=== PATIENT | male | born 1980 | race Caucasian/White ===

== ENCOUNTER 2020-04-19 20:45 | Emergency (ER) | payer SELFPAY ==
[~2020-04-19] VITALS: Ht 177.8 cm; Wt 63.5 kg
[~2020-04-19 20:45] MED LIST: ACHD5005 PO; ALPR.5T; AMOX500C2 PO; CITA40TA19 PO; CLIN-62 PO; CLON0.5T3 PO; CLON1TAB36 PO; CYCL10TA9 PO; DVL500TEC PO; HYDR1TAB PO; NAPR-243 PO; PENI500T PO; QUET50TA; TRM50T PO; TRZ100T PO; VICODIN; WELLBUTRIN; XANAX
--- NOTE | 2020-04-19 20:57 | ED Psychosocial ---
General Chief Complaint: Substance Abuse Stated Complaint: ALCOHOL INTOX Source: EMS Exam Limitations: no limitations (JERROD JUAREZ APRN) History of Present Illness Date Seen by Provider: April 19, 2020 Time Seen by Provider: 20:56 Initial Comments To ER per EMS with reports of alcohol intoxication. He was apparently driving, was pulled over by police, got out of the car and was unable to stand up so they called EMS. Timing/Duration: constant Severity: moderate (JERROD JUAREZ APRN) Allergies and Home Medications Allergies Coded Allergies: No Known Drug Allergies (Verified , 04/27/09) Patient Home Medication List Home Medication List Reviewed: Yes (JERROD JUAREZ APRN) Review of Systems Constitutional: see HPI, other (unable to obtain due to altered mental status) EENTM: see HPI (JERROD JUAREZ APRN) Past Gihfhmm-Tvhjvg-Treslx Hx Immunizations Up To Date Date of Influenza Vaccine: Dec 30, 2011 (JERROD JUARZE APRN) Past Medical History Anxiety, Depression (JERROD JUAREZ APRN) Physical Exam Vital Signs - First Documented 04/19/20 20:53 Temp 36.2 Pulse 89 Resp 17 B/P (MAP) 134/101 (112) O2 Delivery Room Air (CLEVELAND NICOLAS MD) Capillary Refill : (JERROD JUAREZ APRN) Height, Weight, BMI Height: '" Weight: lbs. oz. kg; BMI Method:Stated General Appearance: WD/WN, no apparent distress, other (lethargic, maintaining his own airway alert) Neck: non-tender, full range of motion Respiratory: no respiratory distress, no accessory muscle use Cardiovascular: regular rate, rhythm, no murmur Gastrointestinal: normal bowel sounds, non tender, soft Neurologic/Psychiatric: alert Appearance/Memory: disheveled, impaired insight Thoughts/Hallucinations: normal thought pattern, no apparent hallucination Skin: normal color, warm/dry (JERROD JUAREZ APRN) Progress/Results/Core Measures Results/Orders Lab Results Laboratory Tests Test 04/19/20 20:55 04/19/20 22:30 Range/Units White Blood Count 12.1 H 4.3-11.0 10^3/uL Red Blood Count 4.60 4.35-5.85 10^6/uL Hemoglobin 15.1 13.3-17.7 G/DL Hematocrit 42 40-54 % Mean Corpuscular Volume 91 80-99 FL Mean Corpuscular Hemoglobin 33 25-34 PG Mean Corpuscular Hemoglobin Concent 36 32-36 G/DL Red Cell Distribution Width 13.0 10.0-14.5 % Platelet Count 207 130-400 10^3/uL Mean Platelet Volume 9.3 7.4-10.4 FL Neutrophils (%) (Auto) 79 H 42-75 % Lymphocytes (%) (Auto) 13 12-44 % Monocytes (%) (Auto) 8 0-12 % Eosinophils (%) (Auto) 0 0-10 % Basophils (%) (Auto) 0 0-10 % Neutrophils # (Auto) 9.5 H 1.8-7.8 X 10^3 Lymphocytes # (Auto) 1.5 1.0-4.0 X 10^3 Monocytes # (Auto) 0.9 0.0-1.0 X 10^3 Eosinophils # (Auto) 0.0 0.0-0.3 10^3/uL Basophils # (Auto) 0.1 0.0-0.1 10^3/uL Prothrombin Time 13.3 12.2-14.7 SEC INR Comment 1.0 0.8-1.4 Sodium Level 146 H 135-145 MMOL/L Potassium Level 2.9 L 3.6-5.0 MMOL/L Chloride Level 111 H 98-107 MMOL/L Carbon Dioxide Level 21 21-32 MMOL/L Anion Gap 14 5-14 MMOL/L Blood Urea Nitrogen 11 7-18 MG/DL Creatinine 0.80 0.60-1.30 MG/DL Estimat Glomerular Filtration Rate > 60 BUN/Creatinine Ratio 14 Glucose Level 127 H 70-105 MG/DL Calcium Level 7.7 L 8.5-10.1 MG/DL Corrected Calcium 7.9 L 8.5-10.1 MG/DL Total Bilirubin 0.2 0.1-1.0 MG/DL Aspartate Amino Transf (AST/SGOT) 36 H 5-34 U/L Alanine Aminotransferase (ALT/SGPT) 34 0-55 U/L Alkaline Phosphatase 43 40-136 U/L Total Protein 6.2 L 6.4-8.2 GM/DL Albumin 3.8 3.2-4.5 GM/DL Serum Alcohol 480 *H <10 MG/DL Urine Color YELLOW Urine Clarity CLEAR Urine pH 6.0 5-9 Urine Specific [place] <=1.005 1.016-1.022 Urine Protein TRACE H NEGATIVE Urine Glucose (UA) 1+ H NEGATIVE Urine Ketones NEGATIVE NEGATIVE Urine Nitrite NEGATIVE NEGATIVE Urine Bilirubin NEGATIVE NEGATIVE Urine Urobilinogen 0.2 < = 1.0 MG/DL Urine Leukocyte Esterase NEGATIVE NEGATIVE Urine RBC (Auto) NEGATIVE NEGATIVE Urine RBC NONE /HPF Urine WBC RARE /HPF Urine Squamous Epithelial Cells RARE /HPF Urine Crystals NONE /LPF Urine Bacteria TRACE /HPF Urine Casts NONE /LPF Urine Mucus SMALL H /LPF Urine Culture Indicated NO Urine Opiates Screen NEGATIVE NEGATIVE Urine Oxycodone Screen NEGATIVE NEGATIVE Urine Methadone Screen NEGATIVE NEGATIVE Urine Propoxyphene Screen NEGATIVE NEGATIVE Urine Barbiturates Screen NEGATIVE NEGATIVE Ur Tricyclic Antidepressants Screen NEGATIVE NEGATIVE Urine Phencyclidine Screen NEGATIVE NEGATIVE Urine Amphetamines Screen NEGATIVE NEGATIVE Urine Methamphetamines Screen NEGATIVE NEGATIVE Urine Benzodiazepines Screen POSITIVE H NEGATIVE Urine Cocaine Screen NEGATIVE NEGATIVE Urine Cannabinoids Screen POSITIVE H NEGATIVE (CLEVELAND NICOLAS MD) My Orders Orders - CLEVELAND NICOLAS MD Potassium Chloride (Tablet) (K Dur Table (04/19/20 23:00) (CLEVELAND NICOLAS MD) Medications Given in ED Current Medications Medications Dose Ordered Sig/Lesa Route Start Time Stop Time Status Last Admin Dose Admin Potassium Chloride 50 ml @ 50 mls/hr ONCE ONCE IV 04/19/20 21:30 04/19/20 22:29 DC 04/19/20 21:33 50 MLS/HR (CLEVELAND NICOLAS MD) Vital Signs/I&O 04/19/20 20:53 Temp 36.2 Pulse 89 Resp 17 B/P (MAP) 134/101 (112) O2 Delivery Room Air (CLEVELAND NICOLAS MD) Progress Progress Note : Progress Note 2330: I assumed care of the patient from Jerrod Juarez APRN at 2240 pending final labs. Patient is intoxicated. He drinks daily. He has been up walking and talking with us. He did pull his IV which was restarted and we finished the initial potassium replacement. He did get a liter of fluid. He is inebriated but resting peacefully without difficulty. We did talk with his mother who is willing to take him home. He is actually on his way to get him. Patient did take 20 mEq of potassium chloride by mouth as well and has tolerated that without vomiting. He's had no nausea and vomiting here. At this time we will let him go home with his mother. Discharge to his mother's care. Patient verbalize understanding instructions and agreement with plan. (CLEVELAND NICOLAS MD) Departure Impression Primary Impression: Acute alcoholic intoxication Qualified Codes: F10.920 - Alcohol use, unspecified with intoxication, uncomplicated Disposition: 01 HOME, SELF-CARE Condition: Stable Departure-Patient Inst. Decision time for Depature: 23:35 (CLEVELAND NICOLAS MD) Referrals: [facility] (PCP/Family) Primary Care Physician Patient Instructions: ALCOHOL AND SUBSTANCE ABUSE Add. Discharge Instructions: All discharge instructions reviewed with patient and/or family. Voiced understanding. You should follow up with [facility] in their addiction treatment services clinic to discuss alcoholism and the process to quit drinking before your alcoholism kills you. Return for worse pain, fever, vomiting, weakness, breathing problems or other concerns as needed. Resume normal diet and drink plenty of fluids tomorrow. You should decrease her alcohol intake and ultimately quit drinking alcohol. JERROD JUAREZ APRN April 19, 2020 20:57 CLEVELAND NICOLAS MD April 19, 2020 23:37
[2020-04-19] MEDS ORDERED: LACTATED RINGERS 1,000 ML IV SCH (21:00)
[2020-04-19 21:01] LABS: BASOPHILS # (AUTO) 0.1 10^3/uL (0.0-0.1); BASOPHILS % (AUTO) 0 % (0-10); EOSINOPHILS % (AUTO) 0 % (0-10); HEMATOCRIT 42 % (40-54); HEMOGLOBIN 15.1 G/DL (13.3-17.7); LYMPHOCYTES # (AUTO) 1.5 X 10^3 (1.0-4.0); LYMPHOCYTES % (AUTO) 13 % (12-44); MEAN CORPUSCULAR HEMOGLOBIN 33 PG (25-34); MEAN CORPUSCULAR HGB CONC 36 G/DL (32-36); MEAN CORPUSCULAR VOLUME 91 FL (80-99); MEAN PLATELET VOLUME 9.3 FL (7.4-10.4); MONOCYTES # (AUTO) 0.9 X 10^3 (0.0-1.0); MONOCYTES % (AUTO) 8 % (0-12); NEUTROPHILS # (AUTO) 9.5 X 10^3 (1.8-7.8); NEUTROPHILS % (AUTO) 79 % (42-75); PLATELET COUNT 207 10^3/uL (130-400); WHITE BLOOD COUNT 12.1 10^3/uL (4.3-11.0)
--- OUTSIDE RECORDS SUMMARY | 2020-04-19 21:06 | XMS REPORT | Continuity of Care Document ---
Author Author [facility] Organization [facility] Address Unknown Phone Unavailable Care Team Providers Care Satellite Tv Technician Name Role Phone [facility] Insurance Providers Payer Name Policy Number Subscriber Name Relationship Self Pay Silva Chavez Self / Same As Patient Advance Directives Directive Response Recor ded Date Advance Directives N 2:01pm Health Care Power of D[place] Or [place] Hand N 05/20/13 2:01pm Organ Donor N 05/20/13 2 :01pm Problems No Known Problems or Medical conditions. Family History History Response Recorde d Date/Time Hx Family Cancer Y GRANDPARENTS 04/27/09 12:39pm Hx Family Stroke Y GRANDFATHER 04/27/09 12:39pm Social History History Response Recorde d Date/Time Alcohol Use Denies Use 0 05/20/13 2:01pm Recreational Drug Use Y OCC MARIJUANA, MET H 05/20/13 2:01pm Allergies, Adverse Reactions, Alerts Allergen Type Severity Reaction Last Updated No Known Drug Allergies 04/27/09 Medications Medication Dose Units Route Sig Qty Days [Xanax] [Wellbutrin] [Vicodin] Tramadol HCl (Ultram) 50 Mg PO Q4-6HOURS PRN 20 Penicillin V Potassium (Pen-Vee K) 1 Tab PO QID 40 Naproxen (Naprosyn) 1 Ea ch PO TID PRN 20 Naproxen (Naprosyn) 1 Ea ch PO TID PRN 20 Cyclobenzaprine HCl (Cyclobenzaprine Hcl) 1 Each PO Q8HR PRN 15 Trazodone HCl (Desyrel 100 Mg) 100 Mg PO HS Citalopram Hydrobromide (Celexa) 1 Each PO DAILY Divalproex Sodium (Depakote Tab) 1 Each PO TID Immunizations Name Given Type Date of Influenza Vaccine 12/30/11 H Response Recorded Date/Time Status not known Unknown Results No Known Relevant Diagnostic Tests, Laboratory Data and/or Discharge Summary. Encounters Encounter Location Date/ Time Departed Emergency Room [facility] 05/20/13 1:52pm Discharged Inpatient [facility] 04/27/09 12:11pm
--- OUTSIDE RECORDS SUMMARY | 2020-04-19 21:06 | XMS REPORT | Continuity of Care Document ---
Author Organization Unknown Address Unknown Phone Unavailable Allergies Active Description Code Type Severity Reaction Onset Reported/Identified Relationship to Patient Clinical Status Yes No Known Drug Allergies [id number] Drug Allergy Moderate N/A Yes Opioids - Morphine Analogues Drug Allergy N/A N/A 03/02/2013 Yes Opioids - Morphine Analogues Drug Allergy 03/02/2013 Yes Benzodiazepines Drug Allergy N/A N/A 05/29/2013 Yes Hydrocodone Drug Allergy N/A N/A 05/29/2013 Yes No Known Drug Allergies [id number] Drug Allergy Unknown N/A 10/19/2015 Medications Medication Packaging Start Date St op Date Route Dosage Sig TET/DIPHTH/PERTUSSIS INJ 0.5ML 02/27/2020 02/27/2020 IM 0.5 ML IBUPROFEN (MOTRIN) TAB 400MG 02/27/2020 02/27/2020 PO 400 MG HALOPERIDOL (HALDOL) TAB 5MG 02/27/2020 02/27/2020 PO 5 MG SODIUM CHLORIDE 10ML SYRINGE 03/08/2020 03/08/2020 IVP 10 ML ONDANSETRON (ZOFRAN) INJ 4MG/2ML 03/08/2020 03/08/2020 IVP 4 MG LORAZEPAM INJ 2MG/1ML 03/08/2020 03/08/2020 IVP 0.5 MG LORAZEPAM (ATIVAN) TAB 0.5MG 03/08/2020 03/08/2020 PO 0.5 MG Problems Date Dx Coded Attending Type Code Diagnosis Diagnosed By 12/30/2009 300.00 ANX IETY DISORDER NOS 12/30/2009 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 12/30/2009 311 DEPRESSION 12/30/2009 780.52 ins omnia 12/30/2009 300.00 ANX IETY DISORDER NOS 12/30/2009 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 12/30/2009 311 DEPRESSION 12/30/2009 780.52 ins omnia 12/30/2009 300.00 ANX IETY DISORDER NOS 12/30/2009 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 12/30/2009 311 DEPRESSION 12/30/2009 780.52 ins omnia 12/30/2009 KYRA CARROLL APRN 300.00 ANXIETY DISORDER NOS 12/30/2009 KYRA CARROLL APRN 305.1 NICOTINE DEPENDENCE 12/30/2009 KYRA CARROLL APRN 311 DEPRESSION 12/30/2009 KYRA CARROLL APRN 780.52 insomnia 12/30/2009 JARED ZAFARKELLA K 300.00 ANXIETY DISORDER NOS 12/30/2009 JARED ZAFAR FAUSTO K 305.1 NICOTINE DEPENDENCE 12/30/2009 JARED ZAFARKELLA K 311 DEPRESSION 12/30/2009 JARED ZAFARKELLA K 780.52 insomnia 12/30/2009 LAGUERREPAUL STERN APRN 300.00 ANXIETY DISORDER NOS 12/30/2009 PAUL LAGUERRE APRN 305.1 NICOTINE DEPENDENCE 12/30/2009 PAUL LAGUERRE APRN 311 DEPRESSION 12/30/2009 PAUL LAGUERRE APRN 780.52 insomnia 05/02/2010 300.02 AN GEN ANXIETY 05/02/2010 307.40 INS OMNIA 05/02/2010 780.79 MAL AISE AND FATIGUE 05/02/2010 300.02 AN GEN ANXIETY 05/02/2010 307.40 INS OMNIA 05/02/2010 780.79 MAL AISE AND FATIGUE 05/02/2010 300.02 AN GEN ANXIETY 05/02/2010 307.40 INS OMNIA 05/02/2010 780.79 MAL AISE AND FATIGUE 05/02/2010 KYRA CARROLL APRN 300.02 AN GEN ANXIETY 05/02/2010 KYRA CARROLL APRN 307.40 INSOMNIA 05/02/2010 KYRA CARROLL APRN 780.79 MALAISE AND FATIGUE 05/02/2010 FAUSTO COLEMAN DO K 300.02 AN GEN ANXIETY 05/02/2010 KELL COLEMAN DOA K 307.40 INSOMNIA 05/02/2010 FAUSTO COLEMAN DO K 780.79 MALAISE AND FATIGUE 05/02/2010 PAUL LAGUERRE APRN 300.02 AN GEN ANXIETY 05/02/2010 PAUL LAGUERRE APRN 307.40 INSOMNIA 05/02/2010 PAUL LAGUERRE APRN 780.79 MALAISE AND FATIGUE 05/06/2010 296.90 MOO D DISORDER 05/06/2010 780.50 SLE EP DISTURBANCE, UNSPECIFIED 05/06/2010 296.90 MOO D DISORDER 05/06/2010 780.50 SLE EP DISTURBANCE, UNSPECIFIED 05/06/2010 296.90 MOO D DISORDER 05/06/2010 780.50 SLE EP DISTURBANCE, UNSPECIFIED 05/06/2010 CARLY SANDS KYRA ALONZOH 296.90 MOOD DISORDER 05/06/2010 CARLY SANDS KYRA BINTA 780.50 SLEEP DISTURBANCE, UNSPECIFIED 05/06/2010 FAUSTO COLEMAN DO 296.90 MOOD DISORDER 05/06/2010 FAUSTO COLEMAN DO 780.50 SLEEP DISTURBANCE, UNSPECIFIED 05/06/2010 PAUL LAGUERRE APRN 296.90 MOOD DISORDER 05/06/2010 PAUL LAGUERRE APRN 780.50 SLEEP DISTURBANCE, UNSPECIFIED 10/17/2010 799.22 IRR ITIBILITY 10/17/2010 799.22 IRR ITIBILITY 10/17/2010 799.22 IRR ITIBILITY 10/17/2010 CARLY SANDS KYRA BINTA 799.22 IRRITIBILITY 10/17/2010 FAUSTO COLEMAN DO 799.22 IRRITIBILITY 10/17/2010 PAUL LAGUERRE APRN 799.22 IRRITIBILITY 02/17/2011 461.9 SINU SITIS ACUTE 02/17/2011 786.2 COUGH 02/17/2011 461.9 SINU SITIS ACUTE 02/17/2011 786.2 COUGH 02/17/2011 461.9 SINU SITIS ACUTE 02/17/2011 786.2 COUGH 02/17/2011 KYRA CARROLL APRN 461.9 SINUSITIS ACUTE 02/17/2011 CARLY SANDS KYRA BINTA 786.2 COUGH 02/17/2011 FAUSTO COLEMAN DO 461.9 SINUSITIS ACUTE 02/17/2011 FAUSTO COLEMAN DO 786.2 COUGH 02/17/2011 PAUL LAGUERRE APRN 461.9 SINUSITIS ACUTE 02/17/2011 PAUL LAGUERRE APRN 786.2 COUGH 05/07/2011 525.9 UNSP ECIFIED DISORDER OF THE TEETH AND SUPPORTING STRUCTURES 05/07/2011 V68.1 ISSU E OF REPEAT PRESCRIPTIONS 05/07/2011 525.9 UNSP ECIFIED DISORDER OF THE TEETH AND SUPPORTING STRUCTURES 05/07/2011 V68.1 ISSU E OF REPEAT PRESCRIPTIONS 05/07/2011 525.9 UNSP ECIFIED DISORDER OF THE TEETH AND SUPPORTING STRUCTURES 05/07/2011 V68.1 ISSU E OF REPEAT PRESCRIPTIONS 05/07/2011 CARLY SANDS KYRA ALONZOH 525.9 UNSPECIFIED DISORDER OF THE TEETH AND SUPPORTING STRUC TURES 05/07/2011 CARLY SANDS KYRA BINTA V68.1 ISSUE OF REPEAT PRESCRIPTIONS 05/07/2011 FAUSTO COLEMAN DO 525.9 UNSPECIFIED DISORDER OF THE TEETH AND SUPPORTING STRUCTURES 05/07/2011 FAUSTO COLEMAN DO V68.1 ISSUE OF REPEAT PRESCRIPTIONS 05/07/2011 PAUL LAGUERRE APRN 525.9 UNSPECIFIED DISORDER OF THE TEETH AND SUPPORTING STRUC TURES 05/07/2011 PAUL LAGUERRE APRN V68.1 ISSUE OF REPEAT PRESCRIPTIONS 04/21/2012 V58.69 INGA G-TERM (CURRENT) USE OF OTHER MEDICATIONS 04/21/2012 V58.69 INGA G-TERM (CURRENT) USE OF OTHER MEDICATIONS 04/21/2012 V58.69 INGA G-TERM (CURRENT) USE OF OTHER MEDICATIONS 04/21/2012 CARLY SANDS KYRA BINTA V58.69 LONG-TERM (CURRENT) USE OF OTHER MEDICATIONS 04/21/2012 FAUSTO COLEMAN DO V58.69 LONG-TERM (CURRENT) USE OF OTHER MEDICATIONS 04/21/2012 PAUL LAGUERRE APRN V58.69 LONG-TERM (CURRENT) USE OF OTHER MEDICATIONS 03/02/2013 305.90 OTH ER MIXED OR UNSPECIFIED DRUG ABUSE UNSPECIFIED USE 03/02/2013 305.90 OTH ER MIXED OR UNSPECIFIED DRUG ABUSE UNSPECIFIED USE 03/02/2013 305.90 OTH ER MIXED OR UNSPECIFIED DRUG ABUSE UNSPECIFIED USE 03/02/2013 KYRA CARROLL APRN 305.90 OTHER MIXED OR UNSPECIFIED DRUG ABUSE UNSPECIFIED USE 03/02/2013 FAUSTO COLEMAN DO 305.90 OTHER MIXED OR UNSPECIFIED DRUG ABUSE UNSPECIFIED USE 03/02/2013 PAUL LAGUERRE APRN 305.90 OTHER MIXED OR UNSPECIFIED DRUG ABUSE UNSPECIFIED USE 05/17/2013 719.46 DON N IN JOINT INVOLVING LOWER LEG 05/17/2013 719.46 DON N IN JOINT INVOLVING LOWER LEG 05/17/2013 KYRA CARROLL APRN 719.46 PAIN IN JOINT INVOLVING LOWER LEG 05/17/2013 FAUSTO COLEMAN DO 719.46 PAIN IN JOINT INVOLVING LOWER LEG 05/17/2013 SHADE PAUL SANDS 719.46 PAIN IN JOINT INVOLVING LOWER LEG 07/20/2013 KYRA CARROLL APRN 296.32 MO DEPRESSIVE RECURRENT MODERATE 07/20/2013 FAUSTO COLEMAN DO Naresh 296.32 MO DEPRESSIVE RECURRENT MODERATE 07/20/2013 PAUL LAGUERRE APRN 296.32 MO DEPRESSIVE RECURRENT MODERATE 07/04/2015 Marbella CHARLES, Jerrod Tellez Ot 783. 21 07/04/2015 Marbella CHARLES, Jerrod Tellez Ot 784. 0 07/09/2015 Marbella CHARLES, Jerrod Tellez Ot 783. 21 07/09/2015 Marbella CHARLES, Jerrod Tellez Ot 784. 0 07/18/2015 Marbella CHARLES, Jerrod Tellez Ot 783. 21 07/18/2015 Marbella CHARLES, Jerrod Tellez Ot 784. 0 07/29/2015 Marbella CHARLES, Jerrod Tellez Ot 783. 21 07/29/2015 Marbella CHARLES, Jerrod Tellez Ot 784. 0 11/06/2015 DONELL CHARLES, RADHA Ot S93.492A 11/06/2015 DONELL CHARLES, RADHA Ot W10.9XXA 11/06/2015 DONELL CHARLES, RADHA Ot Y92.099 08/04/2016 NAVEEN JOYA MD, Ot F10.10 ALCOHOL ABUSE, UNCOMPLICATED 08/04/2016 NAVEEN JOYA MD, Ot F10.129 ALCOHOL ABUSE WITH INTOXICATION, UNSPECI 08/04/2016 NAVEEN JOYA MD, Ot F41 .9 ANXIETY DISORDER, UNSPECIFIED 08/04/2016 NAVEEN JOYA MD, Ot T50.906A UNDERDOSING OF UNSP DRUG/MEDS/BIOL SUBST 08/04/2016 NAVEEN JOYA MD, Ot Y90 .8 BLOOD ALCOHOL LEVEL OF 240 MG/100 ML OR 08/04/2016 NAVEEN JOYA MD, Ot Z91.120 PT INTENTL UNDRDOSE OF MEDS REGIMEN DUE 08/06/2016 Jerrod Tyson MD Ot 783. 21 LOSS OF WEIGHT 08/06/2016 Jerrod Tyson MD Ot 784. 0 HEADACHE 08/06/2016 Jerrod Tyson MD Ot 783. 21 LOSS OF WEIGHT 08/06/2016 Jerrod Tyson MD, Ot 784. 0 HEADACHE 08/06/2016 RADHA MARLEY MD, Ot S93.492A SPRAIN OF OTHER LIGAMENT OF LEFT ANKLE, 08/06/2016 RADHA MARLEY MD Ot W10.9XXA FALL (ON) (FROM) UNSPECIFIED STAIRS AND 08/06/2016 RADHA MARLEY MD Ot Y92.[address] IN [facility] NON-INSTITUTIONAL RESI 08/06/2016 Jerrod Tyson MD Ot 783. 21 LOSS OF WEIGHT 08/06/2016 Jerrod Tyson MD, Ot 784. 0 HEADACHE 08/06/2016 Jerrod Tyson MD, Ot 783. 21 LOSS OF WEIGHT 08/06/2016 Jerrod Tyson MD, Ot 784. 0 HEADACHE 08/10/2016 NAVEEN JOYA MD Ot F10.10 ALCOHOL ABUSE, UNCOMPLICATED 08/10/2016 NAVEEN JOYA MD Ot F10.129 ALCOHOL ABUSE WITH INTOXICATION, UNSPECI 08/10/2016 NAVEEN JOYA MD Ot F41 .9 ANXIETY DISORDER, UNSPECIFIED 08/10/2016 NAVEEN JOYA MD Ot T50.906A UNDERDOSING OF [facility] DRUG/MEDS/BIOL SUBST 08/10/2016 NAVEEN JOYA MD Ot Y90 .8 BLOOD ALCOHOL LEVEL OF 240 MG/100 ML OR 08/10/2016 NAVEEN JOYA MD Ot Z91.120 PT INTENTL UNDRDOSE OF MEDS REGIMEN DUE 09/07/2016 Jerrod Tyson MD Ot 783. 21 LOSS OF WEIGHT 09/07/2016 Jerrod Tyson MD Ot 784. 0 HEADACHE 09/07/2016 Jerrod Tyson MD, Ot 783. 21 LOSS OF WEIGHT 09/07/2016 Jerrod Tyson MD Ot 784. 0 HEADACHE 09/07/2016 RADHA MARLEY MD, Ot S93.492A SPRAIN OF OTHER LIGAMENT OF LEFT ANKLE, 09/07/2016 RADHA MARLEY MD Ot W10.9XXA FALL (ON) (FROM) UNSPECIFIED STAIRS AND 09/07/2016 RADHA MARLEY MD Ot Y92.[address] IN OT NON-INSTITUTIONAL RESI 01/04/2017 CAYDEN DUMONT Ot K52. 9 NONINFECTIVE GASTROENTERITIS AND COLITIS 01/28/2017 RADHA MARLEY MD, Ot S93.492A SPRAIN OF OTHER LIGAMENT OF LEFT ANKLE, 01/28/2017 RADHA MARLEY MD, Ot W10.9XXA FALL (ON) (FROM) UNSPECIFIED STAIRS AND 01/28/2017 RADHA MARLEY MD, Ot Y92.[address] IN OT NON-INSTITUTIONAL RESI 02/02/2017 CAYDEN DUMONT Ot J00 ACUTE NASOPHARYNGITIS [COMMON COLD] 02/04/2017 CAYDEN DUMONT Ot J00 ACUTE NASOPHARYNGITIS [COMMON COLD] 04/20/2017 Jerrod Tyson MD Ot 783. 21 LOSS OF WEIGHT 04/20/2017 Jerrod Tyson MD Ot 784. 0 HEADACHE 04/20/2017 Jerrod Tyson MD Ot 783. 21 LOSS OF WEIGHT 04/20/2017 Jerrod Tyson MD Ot 784. 0 HEADACHE 04/20/2017 RADHA MARLEY MD, Ot S93.492A SPRAIN OF OTHER LIGAMENT OF LEFT ANKLE, 04/20/2017 RADHA MARLEY MD, Ot W10.9XXA FALL (ON) (FROM) UNSPECIFIED STAIRS AND 04/20/2017 RADHA MARLEY MD Ot Y92.[address] IN OT NON-INSTITUTIONAL RESI 09/13/2018 PAPO WEBSTER P M54 5 Low back pain 12/02/2018 BIANKA MARTINEZ P K529 Noninfective gastroenteritis and colitis, unspecified 12/19/2019 ROBINSON PARKS P M2556 2 Pain in left knee 2020 ZITA, MARIANO P [id number] Alcohol abuse with intoxication, unspecified 2020 ZITA, MARIANO S Z5329 Procedure and treatment not carried out because of patient's decision for other reasons 2020 ZITA, MARIANO P U14830 Alcohol abuse with intoxication, unspecified 2020 ZITA, MARIANO S Z5329 Procedure and treatment not carried out because of patient's decision for other reasons 02/27/2020 [facility] S F10 129 Alcohol abuse with intoxication, unspecified 02/27/2020 [facility] S [id number] Abrasion of right hand, initial encounter 02/27/2020 [facility] P [id number] Abrasion of left hand, initial encounter 02/27/2020 [facility] S M26346R Abrasion, right knee, initial encounter 02/27/2020 [facility] S [id number] Abrasion, left knee, initial encounter 02/27/2020 [facility] S [id number] Exposure to other specified factors, initial encounter 02/27/2020 NAVEEN MCGHEE F11723 Alcohol abuse with intoxication, unspecified 03/08/2020 LASHAY CHARLES, JENELLE Adams P B06300 Alcohol dependence with withdrawal, unspecified 03/08/2020 LASHAY CHARLES, JENELLE Ashley [id number] Nicotine dependence, unspecified, uncomplicated 03/08/2020 LASHAY CHARLES, JENELLE Ashley [id number] Nicotine dependence, chewing tobacco, uncomplicated 03/15/2020 GENARO HIGHTOWER GRIEVANCE MANAGER P F1020 Alcohol dependence, uncomplicated 03/15/2020 WILGENARO HURLEY GRIEVANCE MANAGER S F411 Generalized anxiety disorder 03/15/2020 WILMEI GENARO Michelle GRIEVANCE MANAGER S I10 Essential (primary) hypertension Procedures Code Description [place] [address] URIN E DRUG SCREEN (IN-HOUSE) 11/13/2013 Results Test Result Range Complete blood count (CBC) with automate d white blood cell (WBC) differential - 08/04/16 19:26 Blood automated leukocyte count 10.96 4.0-11.0 Erythrocytes 4.87 4.50-5.50 12.0-16.0;g/dL 15.7 13.5-17.0 Hematocrit 43.10 39.00-50.00 Automated erythrocyte mean corpuscular volume 89 80-100 Mean corpuscular hemoglobin (MCH) determination 32 .2 26.0- 34.0 Automated erythrocyte mean corpuscular h emoglobin concentration measurement (mass/volume) 36.4 31.0-37.0 Erythrocyte distribution width 12.5 11.8-15.6 Automated blood platelet count 329 150-450 Automated blood platelet mean volume measurement 1 0.3 6.0- 9.5 Automated neutrophil percentage 60 51-67 Lymphocytes/100 leukocytes 30 20- 46 Automated monocyte percentage 7 3-11 Eosinophil count auto 3 0-4 Automated basophil percentage 1 0-2 Automated blood neutrophil count 6.5 Blood lymphocytes count (number/volume) 3.3 Automated blood monocyte count 0.7 Blood absolute eosinophil count 0.3 Basophils 0.1 Comprehensive metabolic panel - 08/04/16 19:26 BLOOD UREA NITROGEN 8 7-18 CREATININE SERUM 0.78 0.8-1.5 OSMOLALITY,CALCULATED 288 280-300 CALCIUM 9.2 8.8-10.8 BILIRUBIN,TOTAL 0.6 0.1-1.0 ASPARTATE AMINO TRANSFERASE 31 15 -37 ALANINE AMINOTRANSFERASE 42 30-65 Sodium measurement 121 70-110 Carbon dioxide measurement 21 22- 29 Serum or plasma anion gap 23.4 3-15 Brucella species antibody panel (IgG, IgM) 10 10-20 Estimated glomerular filtration rate (GFR) Cheryl rican 136.3 Estimated glomerular filtration rate (GFR) non- 112.6 Calculated ionized calcium measurement 3.8 3.8-4.6 Serum or plasma alkaline phosphatase measurement 4 1 38-126 Serum or plasma total protein measurement 7.8 6.4-8.5 Serum or plasma albumin measurement 4.9 3.4-5.0 Serum or plasma albumin/globulin mass ratio 1.689 1.1-1.8 ALCOHOL - 08/04/16 19:26 ALCOHOL 254.0 10-80 CBC W/AUTO DIFF - 03/08/20 13:08 WHITE BLOOD COUNT 9.5 X10^3 4.0 - 11.0 RED BLOOD COUNT 4.49 10^6/uL 4.50 - 5.50 MEAN CORPUSCULAR VOLUME 89 FL 80 - 1 00 MEAN CORPUSCULAR HEMOGLOBIN 32.3 pg 26 .0 - 34.0 MEAN CORPUSCULAR HGB CONC 36.4 g/dL 31.0 - 37.0 RED CELL DISTRIBUTION WIDTH 13.2 % 11 .8 - 15.6 MEAN PLATELET VOLUME 9.2 FL 7.5 - 12. 0 HEMOGLOBIN 14.5 g/dL 13.5 - 17.0 HEMATOCRIT 39.80 % 39.00 - 50.00 PLATELETS 356 10^3/uL 150 - 450 %NEUT 57.7 % 51.0 - 73.0 %LYMPH 27.5 % 20.0 - 46.0 %MONO 12.7 % 3.0 - 11.0 %EOS 0.8 % 0.0 - 4.0 %BASO 1.1 % 0.0 - 2.0 #NEUT 5.48 10^3/uL 2.04 - 7.37 #LYMPH 2.6 10^3/uL 0.8 - 5.0 #MONO 1.21 10^3/uL 0.12 - 1.21 #EOS 0.1 10^3/uL 0.0 - 0.4 #BASO 0.1 10^3/uL 0.0 - 0.2 RBC MORPH NOT INDICATED NRG COMPREHENSIVE METABOLIC PANEL - 03/08/20 13:08 CARBON DIOXIDE 21 mmol/L 22 - 29 BLOOD UREA NITROGEN 12 mg/dL 7 - 18 GLOBULIN 3.2 g/dL 2.0 - 3.5 AG E TYPING 40 yrs NRG GLUCOSE 146 mg/dL 70 - 110 SODIUM 140 mmol/L 135 - 150 POTASSIUM 3.6 mmol/L 3.5 - 5.1 CHLORIDE 104 mmol/L 98 - 108 ANION GAP 15 mEq/L 3 - 15 CREATININE 0.73 mg/dL 0.80 - 1.50 BUN/CREAT 16 10 - 20 SGOT/AST 32 U/L 15 - 37 ALBUMIN 5.0 g/dL 3.4 - 5.0 TOTAL PROTEIN 8.2 g/dL 6.4 - 8.5 A/G RATIO 1.6 1.1 - 1.8 ALKALINE PHOS 43 U/L 38 - 126 TOTAL BILI 0.4 mg/dL 0.1 - 1.0 CALCIUM 9.6 mg/dL 8.8 - 10.8 OSMOLALITY 273 mOsm/L 280 - 300 SGPT/ALT 34 U/L 4 - 50 eGFR AfrAm >60 mL/min/1.7 REF RANGE =>60 eGFR NonAfrAm >60 mL/min/1.7 REF RANGE = >60 CALC IZ CA 4.0 mmol/L 3.8 - 4.6 MAGNESIUM - 03/08/20 13:08 MAGNESIUM 1.6 mg/dL 1.6 - 2.3 ALCOHOL SERUM - 03/08/20 13:08 ALCOHOL 52.0 mg/dL 10.0 - 80.0 Troponin I SerPl-mCnc - 03/08/20 13:08 TROPONIN I <0.012 ng/mL 0.000 - 0.080 DRUG SCREEN STAT - 03/08/20 13:45 Methadone NEGATIVE NORMAL: NEGATIVE Oxycodone NEGATIVE NORMAL: NEGATIVE Phencyclidine (PCP) NEGATIVE NORMAL: NE GATIVE Propoxyphene NEGATIVE NORMAL: NEGATIVE DRUG SCREEN STAT LAB NRG COCAINE NEGATIVE NORMAL: NEGATIVE AMPHETAMINES NEGATIVE NORMAL: NEGATIVE METHAMPHET NEGATIVE NORMAL: NEGATIVE THC POSITIVE NORMAL: NEGATIVE OPIATES NEGATIVE NORMAL: NEGATIVE BARBITURATES NEGATIVE NORMAL: NEGATIVE TCA NEGATIVE NORMAL: NEGATIVE BENZO POSITIVE NORMAL: NEGATIVE Encounters ACCT No. Visit Date/Time Discharge Status Pt. Type Provider Facility Loc./Unit Complaint [id number] 04/08/2020 10:15:24 04/08/2020 10:1 5:24 CAN Outpatient GENARO HIGHTOWER Michelle SANDS [id number] 03/15/2020 14:21:00 03/15/2020 14:5 7:00 DIS Outpatient TIFFANIEMEI GENARO Michelle SANDS 062 [id number] 03/08/2020 12:51:00 03/08/2020 16:3 5:00 DIS Emergency JENELLE METZ MD 015 [place] DETOX [id number] 02/27/2020 19:13:00 02/27/2020 23:5 9:59 CLS Outpatient [facility] SCENE TO [facility] [id number] 02/27/2020 19:22:00 02/27/2020 20:3 0:00 DIS Emergency NAVEEN MCGHEE 015 EMS - HAND INJURY [id number] 2020 21:17:00 2020 20:5 8:00 DIS Emergency MARIANO AHUMADA INTOXICATED [id number] 12/19/2019 15:10:00 12/19/2019 16:4 0:00 DIS Outpatient ROBINSON PARKS 062 [id number] 12/02/2018 12:14:00 12/02/2018 20:4 6:00 DIS Outpatient BIANKA MARTINEZ 064 [id number] 09/13/2018 10:56:00 09/13/2018 12:4 8:00 DIS Outpatient PAPO WEBSTER 064 [id number] 12/19/2019 15:18:35 Document Registration [id number] 05/20/2013 13:52:00 013 16:13:00 DIS Emergency [id number] 01/28/2017 11:40:00 017 23:59:59 CLS Outpatient SELZER PA, [facility] [id number] 12/29/2016 13:56:00 017 23:59:59 CLS Outpatient FRANCOIS LOPEZ [facility] [id number] 08/04/2016 18:26:00 016 23:59:59 CLS Emergency MAHNAZ CHARLES, NAVEEN [facility] ED [id number] 10/19/2015 06:17:00 015 23:59:59 CLS Emergency DONELL CHARLES, [facility] ED PT FELL DOWN STAIRS AT HOME [id number] 07/12/2015 09:19:00 09:19:00 CAN Preadmit SHRUTI CHARLES, [facility] LAB [id number] 07/04/2015 08:31:00 015 23:59:59 CLS Outpatient Marbella CHARLES, [facility] RAD CEPHALAGIA [id number] 07/02/2015 06:36:00 015 23:59:59 CLS Outpatient Marbella CHARLES, [facility] RAD WEIGHT LOSS [id number] 02/01/2014 08:33:00 02/01/2014 23:59: 59 CLS Outpatient PAUL LAGUERRE APRN [id number] 11/13/2013 10:15:00 11/13/2013 23:59: 59 CLS Outpatient FAUSTO COLEMAN DO [id number] 07/11/2013 00:00:00 07/11/2013 23:59: 59 CLS Outpatient KYRA CARROLL APRN [id number] 03/02/2013 15:11:00 03/02/2013 23:59: 59 CLS Outpatient [id number] 07/20/2013 15:10:00 Document Registration [id number] 05/17/2013 11:41:00 Document Registration
--- OUTSIDE RECORDS SUMMARY | 2020-04-19 21:06 | XMS REPORT | Continuity of Care Document ---
Author Author [facility] Address Unknown Phone Unavailable Care Team Providers Care Nurses' Registry Director Name Role Phone Jerrod Tyson MD PCP Insurance Providers Payer Name Policy Number Subscriber Name Relationship Self Pay [place] 18 Self / Same A s Patient Advance Directives Directive Response Recorded Date/Time Advanced Directives No 08/04/16 6:30pm Chief Complaint and Reason for Visit Chief Complaint Abuse Reason for Visit Alcohol abuse Problems Active Problems Medical Problem Onset Date Status Alcohol abuse Unknown Acute Ankle injury Unknown Acute Medications No known medications. Social History Query Response Start Date Stop Date Smoking Status Current some day smoker Hospital Discharge Instructions No hospital discharge instructions. Plan of Care Discharge Date 08/04/16 8:30pm Disposition 01 HOME OR SELF-CARE Condition at Discharge Stable Instructions/Education Provided Abuse of Alcohol (ED) Prescriptions See Medication Section Referrals Jerrod Tyson MD - Additional Instructions/Education Patient given paper of other detox facilities by physician Some of your test results may not be complete prior to your leaving the Emergency Department. The Emergency Department is not authorized to give test results over the phone. Please contact the doctor's office listed in this packet of information for your final results. Follow up with your primary care physician or return to the Emergency Department for worsening or worrisome symptoms. * Emergency Department phone number: [phone], x [phone]* MEDICAL RECORD If you need copies of your X-rays, call [phone]. If you need copies of your medical record, including lab results, a signed authorization for release of records will be required. A telephone call for release of Health Information is not allowed. BILLING Billing can sometimes be confusing and frustrating. To help avoid confusion in the future, please take a moment to acquaint yourself with the billing parties for services. SERVICE BILLING [facility] Physician Services [facility] Patients will receive bills for services from the appropriate provider. If you have any questions about your [facility] bill, our staff will be happy to assist you. Please call [phone], and ask for the billing department. THANK YOU for choosing [facility] as your emergency care provider! Care Plan and Goals ~~Discharge Care Plan~~ Problem: Patient leaves against medical advice. Goal: Return for a follow up visit with either your primary care physician or emergency room physician. Instructions: Follow up with your primary care physician or emergency room physician. Return if condition worsens. Functional Status No functional status results. Allergies, Adverse Reactions, Alerts No known allergies. Immunizations No immunization records. Vital Signs Acute Vital Signs Vital Response Date/Time Temperature (Fahrenheit) 98.0 08/04/2016 6:30 pm Pulse 72 bpm 08/04/2016 8:45pm Respirations 18 08/04/2016 8:45pm Height 6 ft 0 in Weight 143 lb Body Mass Index 19.0 kg/m^2 Results Laboratory Results Test Name Result Units Flags Reference Collection Date/Time Result Date/Time Comments White Blood Count 10.96 10^3uL 4.0-11.0 08/04/2016 7:26pm 04/2016 8:02pm Red Blood Count 4.87 10^6uL 4.50-5.50 08/04/2016 7:26pm 09/0 04/2016 8:02pm Hemoglobin 15.7 g/dL 13.5-17.0 08/04/2016 7:pm 6 8:02pm Hematocrit 43.10 % 39.00-50.00 08/04/2016 7:pm 016 8:02pm Mean Corpuscular Volume 89 FL 80-100 08/04/2016 7:26p m 08/04/2016 8:02pm Mean Corpuscular Hemoglobin 32.2 PG 26.0-34.0 7:pm 08/04/2016 8:02pm Mean Corpuscular Hemoglobin Concent 36.4 g/dL 31.0 -37.0 08/04/2016 7:pm 08/04/2016 8:02pm Red Cell Distribution Width 12.5 % 11.8-15.6 7:pm 08/04/2016 8:02pm Platelet Count 329 10^3uL 150-450 08/04/2016 7:pm 016 8:02pm Mean Platelet Volume 10.3 FL H 6.0-9.5 08/04/2016 7:26pm 0 08/04/2016 8:02pm Neutrophils (%) (Auto) 60 % 51-67 08/04/2016 7:26pm 08/04/2016 8:02pm Lymphocytes (%) (Auto) 30 % 20-46 08/04/2016 7:26pm 08/04/2016 8:02pm Monocytes (%) (Auto) 7 % 3-11 08/04/2016 7:26pm 0 08/04/2016 8:02pm Eosinophils (%) (Auto) 3 % 0-4 08/04/2016 7:26pm 08/04/2016 8:02pm Basophils (%) (Auto) 1 % 0-2 08/04/2016 7:26pm 0 08/04/2016 8:02pm Neutrophils # (Auto) 6.5 X10^3 08/04/2016 7:26pm 0 08/04/2016 8:02pm Lymphocytes # (Auto) 3.3 X10^3 08/04/2016 7:26pm 0 08/04/2016 8:02pm Monocytes # (Auto) 0.7 X10^3 08/04/2016 7:26pm 04/2016 8:02pm Eosinophils # (Auto) 0.3 10^3uL 08/04/2016 7:26pm 0 08/04/2016 8:02pm Basophils # (Auto) 0.1 10^3uL 08/04/2016 7:26pm 04/2016 8:02pm Sodium Level 150 mmol/L 135-150 08/04/2016 7:pm 6 8:03pm Potassium Level 3.3 mmol/L L 3.5-5.1 08/04/2016 7:26pm 2015 8:03pm Chloride Level 109 mmol/L H 98-108 08/04/2016 7:pm 016 8:03pm Carbon Dioxide Level 21 mmol/L L 22-29 08/04/2016 7:26pm 0 08/04/2016 8:03pm Anion Gap 23.4 MEQ/L H 3-15 08/04/2016 7:26pm 08/04/2016 8 :03pm Blood Urea Nitrogen 8 mg/dL 7-18 08/04/2016 7:26pm 8:03pm Creatinine 0.78 mg/dL L 0.8-1.5 08/04/2016 7:26pm 08/04/2016 8:03pm BUN/Creatinine Ratio 10 10-20 08/04/2016 7:26pm 0 08/04/2016 8:03pm Estimat Glomerular Filtration Rate 136.3 08/04/2016 7:08/04/2016 8:03pm Estimated GFR (Non- 112.6 08/04/2016 7:08/04/2016 8:03pm Glucose Level 121 mg/dL H 70-110 08/04/2016 7:08/04/20 16 8:03pm Calculated Osmolality 288 mosm/L 280-300 08/04/2016 7:08/04/2016 8:03pm Calcium Level 9.2 mg/dL 8.8-10.8 08/04/2016 7: 016 8:03pm Calcium/Ionized Calcium Ratio 3.8 mg/dL 3.8-4.6 08/04/2016 7:26pm 08/04/2016 8:03pm Total Bilirubin 0.6 mg/dL 0.1-1.0 08/04/2016 7:26pm 2015 8:03pm Alkaline Phosphatase 41 U/L 38-126 08/04/2016 7:26pm 0 08/04/2016 8:03pm Aspartate Amino Transf (AST/SGOT) 31 U/L 15-37 08/04/2016 7:26pm 08/04/2016 8:03pm Alanine Aminotransferase (ALT/SGPT) 42 U/L 30-6 5 08/04/2016 7:26pm 08/04/2016 8:03pm Total Protein 7.8 g/dL 6.4-8.5 08/04/2016 7:26pm 08/04/20 16 8:03pm Albumin 4.9 g/dL 3.4-5.0 08/04/2016 7:26pm 08/04/2016 8:0 3pm Albumin/Globulin Ratio 1.689 1.1-1.8 08/04/2016 7:26pm 08/04/2016 8:03pm Serum Alcohol 254.0 mg/dL H 10-80 08/04/2016 7:26pm 08/04/20 16 8:03pm Procedures No known history of procedures. Encounters Encounter Location Arrival/Admit Date Discharge/Depart Date Attending Provider Departed Emergency Room [facility] 08/04/16 6:26pm 08/04/16 8:30pm NAVEEN JOYA MD Recent Diagnosis
[2020-04-19 21:11] LABS: ALBUMIN 3.8 GM/DL (3.2-4.5); CHLORIDE 111 MMOL/L (98-107); POTASSIUM 2.9 MMOL/L (3.6-5.0); PROTHROMBIN TIME PATIENT 13.3 SEC (12.2-14.7); SODIUM 146 MMOL/L (135-145)
[2020-04-19 21:12] LABS: CALCIUM 7.7 MG/DL (8.5-10.1)
[2020-04-19 21:14] LABS: GLUCOSE 127 MG/DL (70-105); TOTAL PROTEIN 6.2 GM/DL (6.4-8.2)
[2020-04-19 21:15] LABS: BILIRUBIN,TOTAL 0.2 MG/DL (0.1-1.0); CARBON DIOXIDE 21 MMOL/L (21-32)
[2020-04-19 21:17] LABS: ALKALINE PHOSPHATASE 43 U/L (40-136); GFR ESTIMATED > 60
[2020-04-19 21:18] LABS: BUN/CREATININE RATIO 14
[2020-04-19 21:20] LABS: ALANINE AMINOTRANSFERASE 34 U/L (0-55)
[2020-04-19] MEDS ORDERED: POTASSIUM CL 10MEQ/50ML IVPB 50 ML IV ONE (21:30)
[2020-04-19] MEDS ORDERED: NS IV 1000 ML 1,000 ML IV SCH (21:30)
--- NOTE | 2020-04-19 22:10 | NUR ---
PT OUT OF BED AND PULLED BOTH IVS OUT. PT GAVE URINE SAPLE WHILE STANDING UP AND WAS ABLE TO GET BACK INTO BED ON HIS OWN.
[2020-04-19 22:42] LABS: BILIRUBIN,URINE NEGATIVE (NEGATIVE); CLARITY,URINE CLEAR; COLOR,URINE YELLOW; GLUCOSE, URINE (UA) 1+ (NEGATIVE); KETONES,URINE NEGATIVE (NEGATIVE); LEUKOCYTE ESTERASE ,URINE NEGATIVE (NEGATIVE); NITRITE,URINE NEGATIVE (NEGATIVE); PROTEIN,URINE TRACE (NEGATIVE)
[2020-04-19] MEDS ORDERED: KCL 20 MEQ TAB (K-DUR) PO ONE ×2 (22:42→23:00)
[2020-04-19 22:48] LABS: BACTERIA,URINE TRACE /HPF; SQUAMOUS EPITHELIAL CELL,UR RARE /HPF; WBC,URINE RARE /HPF
[2020-04-19 22:51] LABS: BENZODIAZEPINES SCREEN URINE POSITIVE (NEGATIVE)
[2020-04-19 22:52] LABS: AMPHETAMINE SCREEN, URINE NEGATIVE (NEGATIVE); BARBITURATE SCREEN URINE NEGATIVE (NEGATIVE); CANNABINOID SCREEN, URINE POSITIVE (NEGATIVE); COCAINE SCREEN URINE NEGATIVE (NEGATIVE); METHADONE STAT NEGATIVE (NEGATIVE); METHAMPHETAMINE SCREEN URINE S NEGATIVE (NEGATIVE); OPIATE SCREEN URINE NEGATIVE (NEGATIVE); OXYCODONE STAT NEGATIVE (NEGATIVE); PROPOXYPHENE STAT NEGATIVE (NEGATIVE); TRICYCLIC ANTIDEPRESSANTS SCRE NEGATIVE (NEGATIVE)
[2020-04-19 23:43] VITALS: BP 135/91
== END 2020-04-19 23:48 | disposition home or self-care (01) ==
LOC: EDUNIT# 20:45 → ER 20:50
DX: F10.229 Alcohol dependence with intoxication, unspecified (principal); Y90.8 Blood alcohol level of 240 mg/100 ml or more
CPT/HCPCS: 36415; 80053; 80306; 80320; 81000; 85025; 85610